=== PATIENT | female | born 1965 | race Caucasian/White ===

== ENCOUNTER 2019-08-20 05:14 | Day surgery (SDC) ==
--- NOTE | 2019-08-14 12:55 | EKG Report ---
Test Performed on : 08/14/2019 12:49:56 PM Test Reason : PAT Blood Pressure : / mmHG Vent. Rate : 063 BPM Atrial Rate : 063 BPM P-R Int : 148 ms QRS Dur : 074 ms QT Int : 416 ms P-R-T Axes : -16 -01 -06 degrees QTc Int : 425 ms Normal sinus rhythm. Moderate voltage criteria for LVH, may be normal variant Cannot rule out Septal infarct , age undetermined Possible Inferior infarct , age undetermined Abnormal ECG No previous ECGs available Unconfirmed Result
[2019-08-14 13:06] LABS: BASO# 0.06 X1000 (0.0-0.2); BASO% 0.7 % (0.0-0.8); EOS# 0.25 X1000 (0.0-0.7); HEMATOCRIT 40.9 % (37.0-47.0); HEMOGLOBIN 13.6 g/dL (12.0-16.0); LYMPH# 3.27 X1000 (1.2-3.4); LYMPH% 39.5 % (20.5-51.1); MCH 30.7 PG (27-31); MCHC 33.3 g/dL (33-37); MCV 92.3 FL (81-99); MONO# 0.62 X1000 (0.11-0.59); MONO% 7.5 % (1.7-9.3); MPV 9.8 FL (7.4-10.4); NEUT# 4.07 X1000 (1.4-6.5); NEUT% 49.3 % (42.2-75.2); PLT 329 X1000 (130-400); RBC 4.43 XMIL (4.2-5.4); RDW 13.1 % (11.5-14.5); WBC 8.27 X1000 (4.8-10.8)
[2019-08-14 13:53] LABS: CALCIUM 9.6 mg/dL (8.8-10.2); POTASSIUM 3.3 mmol/L (3.5-5.1)
--- NOTE | 2019-08-19 12:57 | HISTORY AND PHYSICAL ---
HISTORY: The patient is a 53-year-old female, who has been followed by Dr. Tim Mcintosh, who is having increasing problems with symptomatic pelvic organ prolapse. The patient was found to have POP-Q stage IV uterine prolapse based on total vaginal length measurements. We discussed pessary management at length. However, because she is sexually active and because of her young age, she is wishing to proceed directly to surgical intervention. The risks and benefits of supracervical hysterectomy with sacrocolpopexy were explained at length. She understands and is wishing to proceed. PAST MEDICAL HISTORY: Positive for hypertension. PAST SURGICAL HISTORY: Positive for bilateral tubal ligation and laparoscopic cholecystectomy and endometrial ablation. ALLERGIES: Penicillin. CURRENT MEDICATIONS: Lisinopril/hydrochlorothiazide 20/12.5, Wellbutrin 75, Linzess 145, Topamax 25, bupropion hydrochloride is 300 ER, temazepam 30 and p.r.n. Zyrtec. SOCIAL HISTORY: Negative for tobacco, EtOH, or drugs. FAMILY HISTORY: Positive for colon cancer in her maternal grandmother. PHYSICAL EXAMINATION: GENERAL: BMI is 18. HEENT: Normocephalic, atraumatic. PERRLA. EOMI. NECK: No thyromegaly. CV: Regular rate and rhythm without murmur, gallop, rub. PULMONARY: Clear. ABDOMEN: Soft with no hepatosplenomegaly. : Shows POP-Q stage IV prolapse based on total vaginal length. The TBL is 11. Point C is -3, AB is +4, BP is +3, GH is 9. NEURO: Afocal. ASSESSMENT AND PLAN: Patient with advanced stage prolapse, who is admitted at this time for definitive surgical intervention. The risks and benefits were discussed at length. She understands and is wishing to proceed. cc: Oren Yates MD
[2019-08-20] MEDS ORDERED: REGLAN ONE (05:38)
[2019-08-20] MEDS ORDERED: CLINDAMYCIN 900 MG/D5W 900 MG/50 ML IVPB ONE (05:38)
[2019-08-20] MEDS ORDERED: PEPCID ONE (05:38)
[2019-08-20] MEDS ORDERED: LR 1,000 ML ONE ×3 (05:39→09:49)
[2019-08-20] MEDS ORDERED: GENTAMICIN 80 MG/NS 80 MG/50 ML IVPB ONE (05:39)
[2019-08-20] MEDS ORDERED: DIPRIVAN 1% ONE (06:13)
[2019-08-20] MEDS ORDERED: FENTANYL ONE (06:13)
[2019-08-20] MEDS ORDERED: SODIUM CHLORIDE 0.9% 10 ML ONE (06:15)
[2019-08-20] MEDS ORDERED: ZOFRAN ONE (06:15)
[2019-08-20] MEDS ORDERED: NORCURON ONE (06:15)
[2019-08-20] MEDS ORDERED: XYLOCAINE-MPF 2% ONE (06:15)
[2019-08-20] MEDS ORDERED: DECADRON ONE (06:15)
[2019-08-20] MEDS ORDERED: QUELICIN (DOSE) ONE (06:15)
[2019-08-20] MEDS ORDERED: XYLOCAINE 2% JELLY ONE (06:18)
[2019-08-20] MEDS ORDERED: D10W 1,000 ML ONE (06:21)
[2019-08-20] MEDS ORDERED: MARCAINE 0.5% ONE (06:21)
--- NOTE | 2019-08-20 06:43 | H&P REVIEW ---
H&P Update H&P Review: H&P was reviewed and patient was examined, No change has occurred in the patient's condition
[2019-08-20] MEDS ORDERED: ROBINUL ONE (07:19)
[2019-08-20] MEDS ORDERED: NEOSTIGMINE ONE ×2 (07:19→09:10)
[2019-08-20] MEDS ORDERED: LASIX ONE (08:54)
[2019-08-20] MEDS ORDERED: TORADOL ONE (08:54)
[2019-08-20] MEDS: DILAUDID ONE ×4 (09:49→10:15)
[2019-08-20] MEDS ORDERED: NORCO-5 ONE (10:22)
[2019-08-20 10:37] LABS: URINE SOURCE CATH
[2019-08-20] MEDS ORDERED: PHENERGAN ONE (10:37)
[2019-08-20 10:41] LABS: BILIRUBIN URINE NEGATIVE (NEGATIVE); BLOOD URINE NEGATIVE (NEGATIVE); COLOR YELLOW; GLUCOSE URINE NEGATIVE (NEGATIVE); KETONE URINE NEGATIVE (NEGATIVE); LEUKOCYTES URINE NEGATIVE (NEGATIVE); NITRITE URINE NEGATIVE (NEGATIVE); PH URINE 5.5; PROTEIN URINE NEGATIVE (NEGATIVE); SP GRAVITY URINE 1.009; TURBIDITY URINE CLEAR (CLEAR); UR EPITHELIAL CELLS <10 /HPF (<10); URINE BACTERIA NEGATIVE /HPF; URINE RBC <10 /HPF (<10); URINE WBC <10 /HPF (<10); UROBILINOGEN URINE NORMAL (NORMAL)
--- NOTE | 2019-08-20 11:22 | OPERATIVE NOTE ---
PROCEDURE DATE: 08/20/2019 PREOPERATIVE DIAGNOSIS: POP-Q stage IV pelvic organ prolapse. POSTOPERATIVE DIAGNOSIS: POP-Q stage IV pelvic organ prolapse, interstitial cystitis. SURGEON: Oern Yates MD. ANESTHESIA: General. ESTIMATED BLOOD LOSS: 25 mL. PROCEDURE PERFORMED: Da Rustam supracervical hysterectomy, abdominal sacrocolpopexy, mid urethral sling with Obtryx. HISTORY: The patient is a 53-year-old female who had been followed by Dr. Tim Mcintosh, who was having increasing problems with symptomatic pelvic organ prolapse and pain associated with it. On evaluation, she was found to have POP-Q stage IV prolapse. She refused pessary management because of sexual activity and wished to proceed to surgical intervention. Because of her young age, a decision was made to proceed with the operative procedure that had the best long-term cure, and she was in total agreement with this. OPERATIVE FINDINGS: Consistent with our preoperative diagnosis as well as moderate glomerulations in the base of the bladder consistent with interstitial cystitis. She was also found to have an extremely redundant colon and no other abnormalities. DESCRIPTION OF OPERATIVE PROCEDURE: The patient was taken to the operating room and placed in the supine position. After adequate general anesthesia was obtained, she was placed in the [facility]. Her abdomen and vagina were prepped and draped in the usual fashion. A supraumbilical incision was made after infiltration of 0.25% Marcaine with epinephrine. A 12 mm port and sheath were introduced through this incision into the pelvic cavity. Pelvic contents were visualized. Therefore, insufflation with CO2 to an intra-abdominal pressure of 14 was performed. The left-sided ports were placed under direct visualization after infiltration with the same local anesthetic and then the right-sided ports were placed in the typical positioning for sacrocolpopexy. These also were placed after infiltration with local anesthetic and under direct visualization. At this time, the patient was placed in a deep Trendelenburg position. Burger catheter was placed and the EEA sizers were placed within the vagina and the anus. On examination with the patient supine and asleep, point C was noted to be at 0. At this time, we placed hot scissors in the right hand, the bipolar PK in arm 2, and a single- tooth tenaculum in arm 3. The robot was docked in the usual fashion. At this time, we used the single-tooth tenaculum to grasp the uterus and elevate it out of the pelvis. She had bilateral tubal ligation in the past so we started on the utero-ovarian pedicles in a clamp, cauterize, and cut fashion on the left-hand side. I continued in a similar fashion through the round ligament and then down the broad ligament to the fold of the peritoneum. We then started our anterior vesicovaginal dissection, dropping the bladder well below the operative site, and then cauterized the uterine vessels along the left-hand side and cut these just above the uterosacral ligament insertion. We went to the right-hand side. Again, starting at the uteroovarian pedicle, we clamped, cauterized, and cut along the right-hand side, and squeezing off the uterus all the way down through the broad ligament down to the peritoneal fold. We continued our anterior vesicovaginal dissection, clamping and cauterizing the vessels along the right-hand side. We again clamped, cauterized, and cut just above the uterosacral ligaments. We then continued with the single blade of the hot scissors coming across the cervical stump right at the insertion of the uterosacral ligaments into the cervical stump, extirpating the corpus of the uterus from its cervical insertion. The corpus was then placed in the appendiceal bed. We regrasped the cervix with the single-tooth tenaculum, elevating it out of the pelvis. We then continued in a sharp dissection fashion in the vesicovaginal plane and we dissected approximately 12 cm anteriorly. We went posteriorly and in a similar fashion, developed the rectovaginal space using the EEA sizers to create this space generally and then did primarily sharp dissection and, again, had approximately 12 cm dissected in the posterior rectovaginal space. We then went up to the sacral promontory and used the Cardiere grasper to deviate the descending colon laterally. This was very difficult because of the redundancy. We actually struggled more with the colon through the surgery than anything. We were able to identify the sacral promontory and elevated the peritoneum off of this, and then dissected down using hot scissors. We removed approximately 1 to 2 cm of presacral fat from this area in order to be able to this visualize the anterior longitudinal ligament and the middle sacral vasculature. We then continued our dissection along the right-hand side lateral of the sigmoid colon but medial of the ureter, and continued this down to our prior dissection that been done in the posterior compartment. At this time, we then trimmed the mesh in the usual fashion and changed our equipment out to needle drivers. We had approximately 10 to 12 cm anteriorly and 10 to 12 cm posteriorly, and the third arm was cut in the typical fashion as well. The mesh was introduced into the peritoneal cavity and then we used a 2-0 Wardell-Allen suture to begin securing the mesh. Starting in the vesicovaginal space, we placed approximately 12 to 14 sutures anteriorly with all following the same knot arrangement of an initial surgeon's throw and then four half-throws after this. We continued across the cervix and then down the posterior compartment in a similar fashion, placing approximately another 12 to 14 sutures in the posterior compartment and apically. The mesh went down to close to the perineal body. We did not have any excessive mesh trimmed out laterally. We had good support and it was laying down smoothly in all compartments. The third arm was brought up to the sacral promontory using the EEA sizers to elevate this at the cervical region and 2 sutures were placed through the anterior longitudinal ligament, securing the mesh to the anterior longitudinal ligament. Excessive mesh was trimmed at this point. We then reperitonealized with a V-Loc suture, having complete coverage of the mesh throughout. Our blood loss at this time had been approximately 5-10 mL. It was essentially a very avascular case. At this time, a decision was made to terminate this portion of the procedure. We undocked the robot and then introduced the morcellator into the assistance port region. We morcellated the uterus all in one piece. We did not have any spilling of any tissue. After removing the morcellator, we then used a Yann-Jaylyn closure system to close the fascia and peritoneum of this port as well as the supraumbilical port. At this time, the abdomen was deflated of all CO2 as the remaining ports were removed and nursing services closed all skin incisions with 4-0 Vicryl ligature in a subcuticular fashion. Vaginally, we had excellent support in all compartments with no evidence of any banding. It definitely had a two fingerbreadth capacity and had excellent support, especially in the anterior and apical compartment. A decision was made to proceed with a sling. We grasped the urethra proximally and distally, injected another 8 to 10 mL of the same local anesthetic, and then made a sagittal incision, dissecting out with Metzenbaum scissors to the 10 o'clock and 2 o'clock positions of the ischiopubic ramus. Based on the bony landmarks of the ramus as well as the insertion of the adductor longus, a stab incision was initially made on the left-hand side. A Halo device was introduced through this incision, through the obturator canal to the denitrator operator's finger. The finger directed the needle out and the mesh was attached to it and retracted back through the skin. This was performed on the contralateral side in a similar fashion. At this time, a cystoscope was introduced in the bladder. The Burger catheter had already been removed. The bladder was filled with approximately 250 mL of D10. No abnormalities with ureters were identified. Both ureteral orifices were effluxing urine without any difficulty. She did have multiple areas in the trigone region consistent with interstitial cystitis with marked glomerulations noted. She also had some pretty small imbedded areas down near the urethrovesical neck that appeared to be possibly old stones but no other abnormalities were noted. There was no evidence of any suture material or mesh. Cystoscope was removed and a Mary Kate clamp was placed in the mid urethral position. The tape was brought up with the Mary Kate clamp, blue tag was excised, and the sheaths were easily removed. There was no tension on the mesh of the sling whatsoever. The mid urethral incision was closed with a running 2-0 Vicryl ligature. Sponge count, instrument count, and needle count were correct x3. Burger catheter was replaced. The patient was taken out of the low adjustable stirrups. She was awakened and taken to the recovery room with vital signs stable. Total blood loss was 25 mL. cc: Oren Yates MD
[2019-08-20] MEDS: PERIDEX MT SCH ×2 (11:54→20:41)
[2019-08-20] MEDS: COLACE PO SCH ×2 (11:54→20:41)
[2019-08-20] MEDS: PRILOSEC PO SCH (11:54)
[2019-08-20] MEDS: ZYRTEC PO SCH (11:55)
[2019-08-20] MEDS: WELLBUTRIN XL PO SCH (11:55)
[2019-08-20] MEDS: LR 1,000 ML IV SCH ×2 (11:55→18:57)
[2019-08-20] MEDS: PRINZIDE 20/12.5MG PO SCH (11:55)
[2019-08-20] MEDS: ZOFRAN ODT PO PRN ×2 (12:48→20:41)
[2019-08-20] MEDS: TORADOL IV SCH ×2 (13:31→20:42)
[2019-08-20] MEDS: NORCO-5 PO PRN (16:20)
--- NOTE | 2019-08-20 18:50 | PROGRESS NOTE ---
DATE: 08/20/2019 SUBJECTIVE: Patient is alert and oriented x3. She is in the room with her friend. OBJECTIVE: She is afebrile. Her vital signs are stable. Urine output has been adequate. She does not seem to be having a lot of pain. ASSESSMENT AND PLAN: Routine postoperative care. We will remove the Burger in the morning and plan on voiding trial. If she completes her voiding trial and is doing well, she will be discharged home tomorrow after completion. cc: Oren Yates MD
[2019-08-20] MEDS ORDERED: TOPAMAX PO SCH (21:00)
[2019-08-20] MEDS ORDERED: RESTORIL PO SCH (21:00)
[2019-08-21] MEDS: NORCO-5 PO PRN ×2 (02:14→08:20)
[2019-08-21] MEDS: LR 1,000 ML IV SCH (02:14)
[2019-08-21] MEDS: TORADOL IV SCH ×2 (03:54→08:30)
[2019-08-21 07:52] VITALS: BP 109/62
[2019-08-21] MEDS: PRINZIDE 20/12.5MG PO SCH (08:15)
[2019-08-21] MEDS: COLACE PO SCH (08:20)
[2019-08-21] MEDS: PRILOSEC PO SCH (08:20)
[2019-08-21] MEDS: WELLBUTRIN XL PO SCH (08:20)
[2019-08-21] MEDS: PERIDEX MT SCH (08:20)
[2019-08-21] MEDS: ZYRTEC PO SCH (08:20)
--- NOTE | 2019-08-22 07:13 | DISCHARGE SUMMARY ---
ADMISSION DATE: 08/20/2019 DISCHARGE DATE: 08/21/2019 PRINCIPAL DIAGNOSIS: POP-Q stage IV prolapse. HISTORY: The patient is a 53-year-old female with advanced stage prolapse who wished to proceed toward surgical intervention. HOSPITAL COURSE: The patient underwent a robotic supracervical hysterectomy, abdominal sacrocolpopexy and mid urethral sling. Her postoperative course has been uncomplicated. She is currently undergoing voiding trial and will be discharged home with instructions after completion. She has been instructed on regular diet and decreased activity and to return in 3 weeks. DISCHARGE MEDICATIONS: Toradol, Colace and [place]. DISCHARGE INSTRUCTIONS: She was instructed on a regular diet decreased activity. cc: Oren Yates MD
== END 2019-08-21 10:55 | disposition home or self-care (01) ==
LOC: OR 05:14 → 4N 05:14 → OR 08-21 10:55
PROVIDERS: ATTEND Obstetrics & Gynecology